=== PATIENT | female | born 1975 | race Caucasian/White ===

== ENCOUNTER → 2017-12-08 | Outpatient (CLI) | payer BC ==
[~2017-12-08] MED LIST: ADAL40PE SQ; IOHEXOL 300 MG/ML 100ML VIAL. IV ONE; METH2.5T PO
--- NOTE | 2017-12-08 15:54 | KCIC ---
CT neck with and without contrast dated 12/08/2017. No comparison available. CLINICAL INDICATION: History of benign neoplasm of tonsil. Difficulty swallowing. Technique: Contiguous axial imaging of the neck performed with and without the administration of 95 cc Omnipaque 300. One or more of the following individualized dose reduction techniques were utilized for this examination: 1. Automated exposure control 2. Adjustment of the mA and/or kV according to patient size 3. Use of iterative reconstruction technique. FINDINGS: Heterogeneous soft tissue mass at the right tonsillar pillar is somewhat ill-defined and difficult to accurately measure. The lesion is estimated at about 1.5 x 2.1 x 3.0 cm and extends from the level of the uvula to the right vallecula. There is no extension inferior to the hyoid bone. No definite involvement of the tongue base. No additional mucosal lesion is visualized. Mildly enlarged level 2 lymph nodes bilaterally measuring up to 1.4 cms long axis on the right and 1.4 cm on the left. Nonpathologically enlarged lymph nodes in the lower posterior cervical chains. The thyroid gland is unremarkable. Submandibular and parotid glands are unremarkable. Limited imaged portions of the base of the brain are unremarkable. The visualized neck vasculature is grossly patent. Paranasal sinuses and mastoid air cells are clear. No significant bony abnormality. Limited images of lung apices are clear. IMPRESSION: 1. Heterogeneous mass centered at the right tonsillar pillar, indeterminate. Consider benign or malignant neoplasm or other benign inflammatory process. Recommend direct visualization. 2. Mild bilateral cervical chain lymphadenopathy, nonspecific. Electronically signed by: Donald Sparks MD (12/08/2017 3:51 PM) [id number]
== END | disposition home or self-care (01) ==
LOC: KCIC CT 10:54
PROVIDERS: ATTEND Otolaryngology
DX: R59.1 Generalized enlarged lymph nodes (principal)
CPT/HCPCS: 70492; Q9967